=== PATIENT | female | born 1990 | race Hispanic/Latino ===

== ENCOUNTER → 2022-04-29 | Outpatient (CLI) | payer BC | END | disposition home or self-care (01) | LOC: RAH 15:08 | PROVIDERS: ATTEND Internal Medicine Nephrology | DX: R41.89 Other symptoms and signs involving cognitive functions and awareness (principal) | CPT/HCPCS: 70450 ==

== ENCOUNTER 2023-02-08 04:08 | Emergency (ER) | payer BC, OTHER ==
[~2023-02-08] VITALS: Ht 172.7 cm; Wt 93.0 kg
[2023-02-08 04:19] VITALS: BP 136/76
[2023-02-08] MEDS ORDERED: LIDOCAINE HCL 1% 20 ML VIAL INJ SCH (04:30)
[2023-02-08] MEDS ORDERED: CEFAZOLIN SODIUM 1 GM VIAL IVPB SCH (04:30)
[2023-02-08] MEDS ORDERED: DIPH,PERTUSS(ACELL),TET VAC/PF 0.5 ML VIAL IM ONE (04:30)
[2023-02-08] MEDS ORDERED: CEPH500T PO (04:48)
[2023-02-08] MEDS ORDERED: IBUP-2071 PO (04:48)
== END 2023-02-08 05:08 | disposition home or self-care (01) ==
LOC: EDH 04:08
DX: S71.112A Laceration without foreign body, left thigh, initial encounter (principal); X58.XXXA Exposure to other specified factors, initial encounter; Y93.89 Activity, other specified; Y92.89 Other specified places as the place of occurrence of the external cause; Y99.8 Other external cause status
CPT/HCPCS: 99284; 96365; 90715; 90471; 12004; J0690

== ENCOUNTER 2025-06-22 13:35 | Emergency (ER) | payer BC ==
[~2025-06-22] VITALS: Ht 172.7 cm; Wt 74.8 kg
[~2025-06-22 13:35] MED LIST: CEPH500T PO; IBUP-2071 PO
--- NOTE | 2025-06-22 13:46 | ERN ---
ED Note History of Present Illness Stated Complaint: MULTIPLE COMPLAINTS Chief Complaint: Multiple Complaints Time Seen by MD: 13:36 Dictation: PATIENT IS A 35-YEAR-OLD FEMALE COMING IN TO THE EMERGENCY ROOM WITH MULTIPLE COMPLAINTS 1ST COMPLAINT IS SHE IS HAVING DYSURIA AND SUPRAPUBIC PAIN FOR THE LAST SEVERAL DAYS. SHE STATES WHEN SHE URINATION IT SMELLS REALLY BAD. SECOND COMPLAINT IS SHE HAS BEEN HAVING BLOATING AND INTERMITTENT CONSTIPATION FOR THE LAST TWO MONTHS. NO FEVER NO CHILLS NO NAUSEA VOMITING. STATES SHE HAS NOT BEEN TO SEE HER PRIMARY CARE DOCTOR. HAS A HISTORY OF BACTERIAL VAGINOSIS AND HAS A HOSPICE HOME CARE COORDINATOR IN [facility] IN HIS NOT SEEN HER DOCTOR THERE EITHER. Allergies: Coded Allergies: No Known Drug Allergies (Unverified Allergy, Unknown, 02/08/23) Home Meds Active Scripts Ibuprofen (Ibuprofen) 800 Mg Tablet, 800 MG PO Q8H PRN for PAIN, #30 TAB 0 Refills Prov:JUN RIVAS MD 02/08/23 Cephalexin (Cephalexin) 500 Mg Tablet, 500 MG PO QID for 5 Days, #20 TAB 0 Refills Prov:JUN RIVAS MD 02/08/23 Past Medical History Past Medical History: Other Additional Past Medical Hx: BACTERIAL VAGINOSIS. Surgical History: None Social History: Negative History: Not Applicable RN Note Reviewed/Agreed w/PFSH: Yes Review of System Dictation CONSTITUTIONAL: NEGATIVE EXCEPT FOR HPI HEAD/FACE: NEGATIVE EXCEPT FOR HPI EENT: NEGATIVE EXCEPT FOR HPI RESPIRATORY: NEGATIVE EXCEPT FOR HPI GASTROINTESTINAL/ABDOMINAL: NEGATIVE EXCEPT FOR HPI CONSTIPATION/BLOATING TWO MONTHS GENITOURINARY: NEGATIVE EXCEPT FOR HPI DYSURIA WITH SUPRAPUBIC PAIN AND FOUL- SMELLING URINE SEVERAL DAYS MUSCULOSKELETAL: NEGATIVE EXCEPT FOR HPI INTEGUMENTARY: NEGATIVE EXCEPT FOR HPI NEUROLOGICAL/PSYCH: NEGATIVE EXCEPT FOR HPI HEMATOLOGIC/LYMPHATIC: NEGATIVE EXCEPT FOR HPI ALL SYSTEMS NEGATIVE, EXCEPT NOTED ABOVE. 13 POINT REVIEW OF SYSTEMS ASSESSED AND ALL NEGATIVE EXCEPT FOR ABOVE. Initial Vital Sign VS Vital Signs Date Time Temp Pulse Resp B/P (MAP) Pulse Ox O2 Delivery O2 Flow Rate FiO2 06/22/25 13:40 98.6 58 16 109/67 98 Room Air 0 Physical Exam Dictation VITAL SIGNS REVIEWED GENERAL APPEARANCE: ALERT, ORIENTED X 3, NO ACUTE DISTRESS, WELL DEVELOPED, NOURISHED. HEAD AND FACE: NON-TRAUMATIC. EYES: PERRL, PINK CONJUNCTIVAS, EYELID NO TRAUMA, ANTERIOR CHAMBER WITH ARCUS SENILIS. EARS: PINNAS INTACT AND NO SIGNS OF TRAUMA OR ERYTHEMA EAR CANALS CLEAR AND NO DISCHARGE TM NO ERYTHEMA NOSE: NO DISCHARGE, NO BLEEDING. OROPHARYNX: MOUTH NORMAL, TONGUE PINK, PHARYNX CLEAR,NO ERYTHEMA, TONSILS NO EXUDATES, NO ABSCESSES NOTED, MUCOUS MEMBRANE MOIST NECK: SUPPLE, NON-TENDER, NO THYROMEGALY, NO MASSES, NO JVD, NO BRUITS BREAST:DEFERRED CHEST:NO TENDERNESS, NO CREPITUS, NO PARADOXICAL MOVEMENT, NO RETRACTIONS LUNGS:CLEAR, WELL-VENTILATED, SYMMETRIC, NO RALES, NO WHEEZING, NO RHONCHI, NO STRIDOR, GOOD BREATH SOUNDS BILATERALLY HEART: REGULAR RATE, REGULAR RHYTHM, NO MURMUR, NO GALLOPS VASCULAR: NO PERIPHERAL EDEMA, ABDOMEN: SOFT, POSITIVE BOWEL SOUNDS, NONDISTENDED, NO GUARDING, NONTENDER, NO REBOUND, NO MASSES NO HEPATOMEGALY, NO SPLENOMEGALY, NO MCKAY'S SIGN, NO HERNIAS. RECTAL: DEFERRED GENITAL: DEFERRED MILD SUPRAPUBIC TENDERNESS. NEUROLOGICAL: NORMAL SPEECH, MOTOR FUNCTION INTACT, SENSORY FUNCTION INTACT MUSCULOSKELETAL: NECK NONTENDER, FULL RANGE OF MOTION, BACK NONTENDER, FULL RANGE OF MOTION, EXTREMITIES: NONTENDER, FULL RANGE OF MOTION SKIN: COLOR PINK, DRY, NO TURGOR, NO RASH, NO LACERATIONS, NO ABRASIONS, NO CONTUSIONS. LYMPHATIC: DEFERRED Results (Laboratory/Radiology) Laboratory/Radiology Laboratory Tests Test 06/22/25 13:14 06/22/25 15:45 White Blood Count 7.7 K/uL (4.8-10.8) Red Blood Count 4.06 MIL/uL (4.00-5.50) Hemoglobin 12.9 g/dL (12.0-16.0) Hematocrit 38.9 % (36-48) Mean Corpuscular Volume 95.8 fL (79-99) Mean Corpuscular Hemoglobin 31.8 pg (27.0-33.0) Mean Corpuscular Hemoglobin Concent 33.2 g/dL (32.0-36.0) Red Cell Distribution Width 13.6 % (11.0-15.5) Platelet Count 214 K/uL (130-400) Mean Platelet Volume 8.6 fL (7.5-10.5) Immature Granulocyte % (Auto) 0.3 % (0-1) Neutrophils (%) (Auto) 56.0 % (40.0-77.0) Lymphocytes (%) (Auto) 34.9 % (21.0-51.0) Monocytes (%) (Auto) 6.7 % (3.0-13.0) Eosinophils (%) (Auto) 1.8 % (0.0-8.0) Basophils (%) (Auto) 0.3 % (0.0-5.0) Neutrophils # (Auto) 4.3 K/uL (1.8-7.7) Lymphocytes # (Auto) 2.7 K/uL (1.0-4.8) Monocytes # (Auto) 0.5 K/uL (0.1-1.0) Eosinophils # (Auto) 0.14 K/uL (0.00-0.70) Basophils # (Auto) 0.02 K/uL (0.00-0.20) Absolute Immature Granulocyte (auto 0.02 K/uL (0-1) Nucleated Red Blood Cells 0.0 % (0.0-0.19) Sodium Level 142 mmol/L (136-145) Potassium Level 4.0 mmol/L (3.5-5.1) Chloride Level 103 mmol/L (101-111) Carbon Dioxide Level 28 mmol/L (21-32) Blood Urea Nitrogen 16 mg/dL (7-18) Creatinine 0.7 mg/dL (0.5-1.0) Glomerular Filtration Rate Calc 115 mL/min (>90) Random Glucose 85 mg/dL (70-105) Total Calcium 8.7 mg/dL (8.5-10.1) Urine Color YELLOW (YELLOW) Urine Appearance CLEAR (CLEAR) Urine pH 5.5 (5.0-8.0) Urine Specific [place] 1.022 (1.001-1.031) Urine Protein NEGATIVE mg/dL (NEGATIVE) Urine Glucose (UA) NEGATIVE mg/dL (NEGATIVE) Urine Ketones 5 mg/dL (NEGATIVE) H Urine Occult Blood SMALL (NEGATIVE) H Urine Nitrate NEGATIVE (NEGATIVE) Urine Bilirubin NEGATIVE mg/dL (NEGATIVE) Urine Urobilinogen 0.2 mg/dL (0.2-1.0) Urine Leukocyte Esterase NEGATIVE Chris/uL Urine RBC 2-5 /HPF (0-1) H Urine WBC 0-1 /HPF (0-1) Urine Squamous Epithelial Cells MANY /HPF (0-2) Urine Bacteria RARE /HPF (None Seen) Urine HCG, Qualitative NEGATIVE (NEGATIVE) 1640/KUB DEMONSTRATES NONSPECIFIC GAS PATTERN AND RETAINED STOOL. Labs Reviewed?: Yes ED Course ED Course Orders Procedure Category Date Status Time Abd 1vw RAD 06/22/25 Taken 13:41 Cbc With Differential LAB 06/22/25 Complete 13:41 ,Urine Test LAB 06/22/25 Complete 13:41 Urinalysis Profile LAB 06/22/25 Complete 13:41 Basic Metabolic Panel LAB 06/22/25 Complete 13:41 Vital Signs Date Time Temp Pulse Resp B/P (MAP) Pulse Ox O2 Delivery O2 Flow Rate FiO2 06/22/25 13:40 98.6 58 16 109/67 98 Room Air 0 1640/PATIENT WILL BE DISCHARGED HOME WITH A ACUTE CONSTIPATION BE PRESCRIBED GOLYTELY TOLD SEE HER PRIMARY CARE DOCTOR Medical Decision Making MDM MDM: DIFFERENTIAL DIAGNOSIS: UTI VERSUS ACUTE CYSTITIS WITH HEMATURIA/ELECTROLYTE IMBALANCE/DEHYDRATION/CONSTIPATION/GAS PAIN RATIONALE: TESTS CONSIDERED AND ORDERED SECONDARY TO SHARED DECISION MAKING INCLUDE: LABS/RADIOLOGY PREVIOUS OUTSIDE RECORDS REVIEWED: OLD ER VISITS. RISK OF COMPLICATION AND/OR MORBIDITY OR MORTALITY OF PATIENT MANAGEMENT: NONE MEDICATIONS-PER MEDICATION RECONCILIATION NEED FOR HOSPITALIZATION: PATIENT DOES NOT MEET CRITERIA FOR HOSPITALIZATION. NONE NEED FOR EMERGENCY MAJOR/MINOR SURGERY: NO THERE ARE NO SOCIAL CONCERNS WITH THIS PATIENT. PRESCRIPTION DRUG MANAGEMENT GOLYTELY PRESCRIPTIONS WILL INCLUDE SYMPTOMATIC CARE PATIENT'S PRIOR EXTERNAL MEDICAL RECORDS FROM OTHER ER VISITS WERE REVIEWED BY ME INDICATED. PRIOR TESTING AND RESULTS FROM PREVIOUS VISITS WERE REVIEWED. PRIOR TESTS WERE TAKEN INTO ACCOUNT WITH MEDICAL DECISION MAKING AND RESOURCE UTILIZATION, INDEPENDENT HISTORIAN/HISTORIANS WERE USED TO OBTAIN COMPLETE MEDICAL HISTORY. I INDEPENDENTLY INTERPRETED THE TEST THAT WERE PERFORMED, RESULTS WERE REVIEWED BY ME AND CONSIDERED FINDINGS ON RADIOLOGY IF ORDERED. MEDICAL MANAGEMENT AND EXAMINATION INTERPRETATION DISCUSSIONS WERE HAD BY ME WITH OTHER QUALIFIED HEALTHCARE PROFESSIONALS INDICATED FOR THE PATIENT'S CARE. DX & DISP Disposition: Discharge Departure Impression: Primary Impression: Acute constipation Additional Impression: Dehydration Condition: Stable Scripts Peg 3350/Na Sulf,Bicarb,Cl/KCl (Golytely/Colyte Soln) 236-22.74G Soln 4000 ML PO AD, #1 BOTTLE MIX BOTTLE DIRECTED. DRINK ONE CUP EVERY 10 MINUTES UNTIL STOOLS ARE CLEAR. Prov: ANYA GUZMAN MEDICAL INSURANCE COLLECTOR 06/22/25 Additional Instructions: FOLLOW-UP WITH PRIMARY CARE PROVIDER IN 1 TO 2 DAYS. TAKE MEDICATIONS DIRECTED HERE IN THE EMERGENCY ROOM. OKAY TO CONTINUE HOME MEDICATIONS UNLESS OTHERWISE DISCUSSED DURING YOUR VISIT IN THE EMERGENCY ROOM TODAY. RETURN TO YOUR NEAREST EMERGENCY ROOM IF SYMPTOMS WORSEN OR IF THERE IS NO IMPROVEMENT. CALL 911 IF YOU NEED IMMEDIATE ASSISTANCE. TAKE TYLENOL OR MOTRIN [id number] NEEDED AND IF NO CONTRAINDICATIONS ARE PRESENT. INCREASE ORAL HYDRATION. A WOUND CULTURE OR URINE CULTURE WAS ORDERED HERE IN THE EMERGENCY ROOM DEPARTMENT PLEASE FOLLOW-UP WITH PRIMARY CARE PROVIDER AND ADVISE THEM TO GET REPEAT PORTS FROM OUR FACILITY. IF YOU HAD ANY ASIA WRAP/SPLINTS THAT WERE APPLIED HERE, PLEASE DO NOT REMOVE THEM UNTIL YOU SEE YOUR PRIMARY CARE OR SPECIALTY. FILL GOLYTELY PRESCRIPTION AND TAKE DIRECTED UNTIL YOUR STOOLS ARE CLEAR. SEE YOUR PRIMARY CARE DOCTOR FOR FOLLOW UP IN THE NEXT 1-2 DAYS. Referrals: AMY GONZALES MD (PCP) Time of Disposition: 16:41 I have reviewed the case, and I agree with, Diagnosis and Plan ANYA GUZMAN Jun 22, 2025 13:46
[2025-06-22 13:57] LABS: IMMATURE GRANULOCYTE ABSOLUTE 0.02 K/uL (0-1); NUCLEATED RED BLOOD CELLS 0.0 % (0.0-0.19); PLATELET COUNT (AUTO) 214 K/uL (130-400); RED BLOOD CELL COUNT(AUTO) 4.06 MIL/uL (4.00-5.50); RED CELL DISTRIBUTION WIDTH 13.6 % (11.0-15.5); WHITE BLOOD COUNT (AUTO) 7.7 K/uL (4.8-10.8)
[2025-06-22 14:03] LABS: CREATININE 0.7 mg/dL (0.5-1.0); GLOMERULAR FILTR. RATE CALC 115.0 mL/min (>90); GLUCOSE,RANDOM 85.0 mg/dL (70-105); SODIUM SERUM 142.0 mmol/L (136-145); UREA NITROGEN, BLOOD 16.0 mg/dL (7-18)
[2025-06-22 15:59] LABS: APPEARANCE,URINE CLEAR (CLEAR); GLUCOSE, URINE (UA) NEGATIVE (NEGATIVE); LEUKOCYTE ESTERASE ,URINE NEGATIVE Leu/uL (NEGATIVE); NITRATE,URINE NEGATIVE (NEGATIVE); OCCULT BLOOD,URINE SMALL (NEGATIVE)
[2025-06-22 16:00] LABS: ADD UA MICROSCOPIC YES
[2025-06-22 16:01] LABS: HCG,QUALITATIVE URINE NEGATIVE (NEGATIVE)
[2025-06-22 16:03] LABS: SQUAMOUS EPITHELIAL CELL,UR MANY /HPF (0-2)
[2025-06-22] MEDS ORDERED: GOLY4L PO (16:43)
[2025-06-22 16:45] VITALS: BP 118/73; PULSE 78; RESP 16; TEMP 98.6; O2SAT 98
--- NOTE | 2025-06-22 16:47 | HMCIMG ---
ABD 1VW REASON: CONSTIPATION BLOATING/TWO MONTHS. FINDINGS: Single image of the abdomen was obtained. Bowel gas pattern is normal. There is mild fecal stasis. Bones and soft tissues appear unremarkable. There are no abnormal calcifications. There is no evidence of foreign body. IMPRESSION: 1. Negative single view of the abdomen.
== END 2025-06-22 17:00 | disposition home or self-care (01) ==
LOC: EDH 13:35
DX: K59.00 Constipation, unspecified (principal); E86.0 Dehydration; R30.0 Dysuria
CPT/HCPCS: 36415; 74018; 80048; 81001; 81025; 85025; 99283